=== PATIENT | male | born 1965 | race Caucasian/White ===

== ENCOUNTER 2017-09-13 10:21 | Outpatient (CLI) ==
--- NOTE | 2017-09-13 12:51 | US ---
EXAM: Bilateral lower extremity venous doppler. HISTORY: Bilateral leg pain. COMPARISON: None available. TECHNIQUE: Multiple grayscale and color doppler images were obtained. FINDINGS: There is normal flow, compressibility and augmentation of flow within the right and left c ommon femoral, greater saphenous, profunda, femoral, popliteal, posterior tibial, anterior tibial and peroneal veins. IMPRESSION: No evidence for right or left lower extremity deep vein thrombosis at the levels examined.
== END 2017-09-13 10:22 | disposition home or self-care (01) ==
LOC: RAD 10:21
PROVIDERS: ATTEND Internal Medicine
DX: I26.99 Other pulmonary embolism without acute cor pulmonale (principal); M79.605 Pain in left leg; M79.604 Pain in right leg